=== PATIENT | male | born 1940 | race Caucasian/White ===

== ENCOUNTER → 2021-04-05 | Outpatient (CLI) | payer OTHER | LOC: US 08:08 | DX: M79.604 Pain in right leg (principal); M79.605 Pain in left leg; Z13.6 Encounter for screening for cardiovascular disorders | CPT/HCPCS: 76706; 93925 ==

== ENCOUNTER → 2021-09-19 | Outpatient (CLI) | payer OTHER | LOC: KOH-I 15:57 | DX: R05.9 Cough, unspecified (principal); R06.2 Wheezing; J98.11 Atelectasis; J84.10 Pulmonary fibrosis, unspecified | CPT/HCPCS: 71046 ==

== ENCOUNTER → 2021-09-26 | Outpatient (CLI) | payer OTHER | LOC: HEART 5 09:09 | DX: I48.0 Paroxysmal atrial fibrillation (principal); I08.3 Combined rheumatic disorders of mitral, aortic and tricuspid valves | CPT/HCPCS: 93306 ==

== ENCOUNTER → 2022-01-27 | Day surgery (SDC) | payer OTHER ==
[~2022-01-27] MED LIST: ADULT LOW DOSE81 MG PO; ELIQUIS5 MG PO; FISH OIL 1,2001 EACH PO; MUCINEX PO; PROTONIX 40 MG40 M1 PO; SOTALOL80 MG PO; VITAMIN D3125 MCG PO; ZINC50 M1 PO
== END | disposition home or self-care (01) ==
LOC: OR 06:12
DX: H69.81 Other specified disorders of Eustachian tube, right ear (principal); H65.21 Chronic serous otitis media, right ear; J45.909 Unspecified asthma, uncomplicated; H90.A31 Mixed conductive and sensorineural hearing loss, unilateral, right ear with restricted hearing on the contralateral side; H93.11 Tinnitus, right ear; K21.9 Gastro-esophageal reflux disease without esophagitis; Z79.01 Long term (current) use of anticoagulants; Z79.82 Long term (current) use of aspirin; Z88.0 Allergy status to penicillin; Z79.899 Other long term (current) drug therapy
CPT/HCPCS: C1726; J1100; J2001; J2405; J2704; J3010; J7120